=== PATIENT | female | born 1965 | race Caucasian/White ===

== ENCOUNTER 2019-08-22 23:05 | Emergency (ER) | payer SELFPAY ==
[~2019-08-22] VITALS: Ht 167.6 cm; Wt 72.6 kg
[2019-08-22] MEDS ORDERED: HYDROCODONE/APAP 5/325MG 1 EACH TABLET ONE (23:32)
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
[2019-08-23] MEDS ORDERED: HYDROCODONE/APAP 5/325MG 1 EACH TABLET PO ONE
--- NOTE | 2019-08-23 00:59 | NUR ---
Patient discharged to home in stable condition. Written and verbal after care instructions given. Patient verbalizes understanding of instruction. Pt was wheeled out on wheelchair to pt;s family' car. Pt dispensed w/ front wheeled walker, pt teaching provided as well as to family.
[2019-08-23 01:01] VITALS: BP 132/83
== END 2019-08-23 01:02 | disposition home or self-care (01) ==
LOC: ER 23:11
DX: S82.141A Displaced bicondylar fracture of right tibia, initial encounter for closed fracture (principal); W18.09XA Striking against other object with subsequent fall, initial encounter; Y93.89 Activity, other specified; Y92.488 Other paved roadways as the place of occurrence of the external cause; Y99.8 Other external cause status
CPT/HCPCS: 73564-TC